=== PATIENT | female | born 1960 | race American Indian/Alaskan Native ===

== ENCOUNTER 2016-12-23 21:56 | Emergency (ER) | payer SELFPAY ==
--- NOTE | 2016-12-23 22:33 | Emergency Department Report ---
Chief Complaint: Neuro Symptoms/Deficit Stated Complaint: NUMBNESS/TINGLING HANDS/LEGS Time Seen by Provider: 12/23/16 22:20 - HPI History of Present Illness: History 6-year-old female complaining of numbness and tingling in both upper and lower extremities since yesterday. Denies history of similar symptoms. Positive for fever, Tmax= 100.5. Denies chest pain, shortness of breath, abdominal pain. Positive for history of anemia. Positive for history of hypertension and states that she currently takes metoprolol and Norvasc with her last dose being this morning. Patient has not taken her second dose of metoprolol today. - ROS Review of Systems: Per HPI - Exam Vital Signs: Vital Signs 12/23/16 22:03 Temperature 98.3 F Pulse Rate 102 H Respiratory 20 Rate Blood Pressure 160/109 O2 Sat by Pulse 100 Oximetry Physical Exam: General: 56-year-old female in no acute distress. Well-developed, well- nourished. CV: Regular rate and rhythm. No murmurs rubs or gallops. Lungs: Clear to auscultation bilaterally. MSE screening note: Focused history and physical exam performed. Due to findings the following was ordered: ED Disposition for MSE Condition: Stable
[2016-12-23 23:24] LABS: Basophils % (Auto) 0.8 % (0.0-1.8); Eosinophils % (Auto) 0.6 % (0.0-4.3); Hematocrit 32.5 % (30.3-42.9); Hemoglobin 10.2 gm/dl (10.1-14.3); Mean Corpuscular HGB Conc 31 % (30-34); Mean Corpuscular Volume 73 fl (79-97); Platelet Count 391 K/mm3 (140-440); Red Blood Count 4.45 M/mm3 (3.65-5.03); White Blood Count 6.2 K/mm3 (4.5-11.0)
[2016-12-23 23:27] LABS: Anion Gap 23 mmol/L; Blood Urea Nitrogen 12 mg/dL (7-17); Calcium 8.5 mg/dL (8.4-10.2); Carbon Dioxide 25 mmol/L (22-30); Chloride 91.9 mmol/L (98-107); Glucose 103 mg/dL (65-100); Potassium 3.8 mmol/L (3.6-5.0); Sodium 136 mmol/L (137-145)
[2016-12-23 23:29] LABS: Mean Corpuscular Hemoglobin 23 pg (28-32); Red Cell Distribution Width 21.4 % (13.2-15.2)
[2016-12-24] MEDS ORDERED: LOPRESSOR PO ONE (09:13)
[2016-12-24] MEDS ORDERED: NORVASC PO ONE (09:13)
[2016-12-24] MEDS ORDERED: NEURONTIN PO ONE (09:33)
[2016-12-24] MEDS ORDERED: MAGNESIUM SULFATE 2GM/50ML 2 GM/50 ML BAG IV ONE (10:25)
--- NOTE | 2016-12-24 10:29 | Emergency Department Report ---
ED Neuro Deficit HPI - General Chief Complaint: Neuro Symptoms/Deficit Stated Complaint: NUMBNESS/TINGLING HANDS/LEGS Time Seen by Provider: 12/23/16 22:20 Source: patient Mode of arrival: Ambulatory Limitations: No Limitations - History of Present Illness Initial Comments: 56-year-old female with a past medical history of diabetes or hypertension since the hospital complains of burning, numbness, and tingling to bilateral hands and feet. Symptoms constant since yesterday. Patient denies any previous history of the same or any recent injury. No complaints of neck pain or back pain. MAXIMUM TEMPERATURE 100.5 yesterday. Patient states she has been off her diabetes medications (oral pills and insulin) for greater than 10 years because her sugars have been normal. She states she has had intermittent nausea vomiting times one month without specific abdominal pain. Currently patient takes Norvasc, metoprolol, and Cymbalta did not have any of her medications today. Patient's previous visits have been related to psychiatric issues such as suicidal ideation and overdose attempt. - Related Data Home Medications: Home Medications Medication Instructions Recorded Confirmed Last Taken Cymbalta 60 mg PO 12/24/16 Unknown Metoprolol 100 mg BID 12/24/16 12/24/16 Unknown Norvasc 10 mg PO QDAY 12/24/16 12/24/16 Unknown Potassium Chlorate 20 meq PO QDAY 12/24/16 12/24/16 Unknown Previous Rx's Medication Instructions Recorded Last Taken Type Gabapentin [Neurontin] 100 mg PO Q8HR #90 capsule 12/24/16 Unknown Rx Allergies/Adverse Reactions: Allergies Allergy/AdvReac Type Severity Reaction Status Date / Time lisinopril Allergy Shortness Verified 12/23/16 22:10 of Breath morphine Allergy Rash Verified 12/23/16 22:10 codeine AdvReac Unknown Verified 12/23/16 22:10 ED Review of Systems ROS: Stated complaint: NUMBNESS/TINGLING HANDS/LEGS Other details as noted in HPI Comment: All other systems reviewed and negative Other: Constitutional: No fevers chills Eyes: No eye pain visual changes ENT: No ear pain or throat pain Neck: Denies pain Respiratory: Denies cough wheezing shortness of breath Cardiovascular: Denies chest pain, palpitations, syncope GI: Denies abdominal pain, nausea, vomiting, diarrhea : Denies dysuria Musculoskeletal: Denies back pain Skin: Denies rash, lesions, erythema Neurologic: Denies headache Psychiatric: Denies suicidal ideation, hallucinations ED Past Medical Hx - Past Medical History Hx Hypertension: Yes Hx Diabetes: Yes Hx Psychiatric Treatment: Yes (depression) - Social History Smoking Status: Never Smoker Substance Use Type: None - Medications Home Medications: Home Medications Medication Instructions Recorded Confirmed Last Taken Type Cymbalta 60 mg PO 12/24/16 Unknown History Gabapentin [Neurontin] 100 mg PO Q8HR #90 capsule 12/24/16 Unknown Rx Metoprolol 100 mg BID 12/24/16 12/24/16 Unknown History Norvasc 10 mg PO QDAY 12/24/16 12/24/16 Unknown History Potassium Chlorate 20 meq PO QDAY 12/24/16 12/24/16 Unknown History ED Neuro Physical Exam - General Limitations: No Limitations Suspected Stroke: No - NIHSS Assessment Interval: Baseline 1a. Level of Consciousness: alert 1b. LOC Questions: answers correctly 1c. LOC Commands: performs tasks correctly 2. Best Gaze: normal 3. Visual: no visual loss 4. Facial Palsy: normal symmetrical movement 5b. Motor Arm Right: no drift 5a. Motor Arm Left: no drift 6a. Motor Leg Left: no drift 6b. Motor Leg Right: no drift 7. Limb Ataxia: absent 8. Sensory: mild/moderate sensory loss 9. Best Language: no aphasia 10. Dysarthria: normal 11. Extinction/Inattention: no abnormality Total Score: 1 Stroke Severity: Minor Stroke - Other Other exam information: General: No limitations, patient is alert in no acute distress Head exam: Atraumatic, normocephalic Eyes exam: Normal appearance, pupils equal reactive to light, extraocular movements intact ENT: Moist mucous membrane, normal oropharynx Neck exam: Normal inspection, full range of motion, no meningismus nontender Respiratory exam: Clear to auscultation bilateral, no wheezes, rales, crackles Cardiovascular: Normal rate and rhythm, normal heart sounds Abdomen: Soft, nondistended, and nontender, with normal bowel sounds, no rebound, or guarding Extremity: Full range of motion normal inspection no deformity Back: Normal Inspection, full range of motion, no tenderness Neurologic: Alert, oriented x3, cranial nerves intact, 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 GC sensation to pinprick distal bilateral upper and lower extremities. Psychiatric: normal affect, normal mood Skin: Warm, dry, intact ED Course Vital Signs 12/23/16 12/24/16 12/24/16 22:03 06:14 08:15 Temperature 98.3 F 98.1 F 98.2 F Pulse Rate 102 H 98 H 95 H Respiratory 20 14 16 Rate Blood Pressure 160/109 157/96 Blood Pressure 171/90 [Right] O2 Sat by Pulse 100 100 100 Oximetry 12/24/16 12/24/16 10:10 10:51 Temperature Pulse Rate 91 H 87 Respiratory 16 Rate Blood Pressure 180/99 Blood Pressure 159/94 [Right] O2 Sat by Pulse 100 Oximetry - Reevaluation(s) Reevaluation #1: 12/24/16 10:29 Patient provided her a.m. dose of BP meds and Neurontin. Magnesium is low and IV dose has been supplemented - Lab Data Result diagrams: 12/23/16 22:58 12/23/16 22:58 Lab Results 12/23/16 12/23/16 12/24/16 Range/Units 22:58 22:58 09:07 WBC 6.2 (4.5-11.0) K/mm3 RBC 4.45 (3.65-5.03) M/mm3 Hgb 10.2 (10.1-14.3) gm/dl Hct 32.5 (30.3-42.9) % MCV 73 L (79-97) fl MCH 23 L (28-32) pg MCHC 31 (30-34) % RDW 21.4 H (13.2-15.2) % Plt Count 391 (140-440) K/mm3 Lymph % (Auto) 34.4 (13.4-35.0) % [place] % (Auto) 3.3 (0.0-7.3) % Eos % (Auto) 0.6 (0.0-4.3) % Baso % (Auto) 0.8 (0.0-1.8) % Lymph # 2.1 (1.2-5.4) K/mm3 [place] # 0.2 (0.0-0.8) K/mm3 Eos # 0.0 (0.0-0.4) K/mm3 Baso # 0.1 (0.0-0.1) K/mm3 Seg Neutrophils % 60.9 (40.0-70.0) % Seg Neutrophils # 3.8 (1.8-7.7) K/mm3 Sodium 136 L (137-145) mmol/L Potassium 3.8 (3.6-5.0) mmol/L Chloride 91.9 L (98-107) mmol/L Carbon Dioxide 25 (22-30) mmol/L Anion Gap 23 mmol/L BUN 12 (7-17) mg/dL Creatinine 0.8 (0.7-1.2) mg/dL Estimated GFR > 60 ml/min BUN/Creatinine Ratio 15.00 % Glucose 103 H (65-100) mg/dL Calcium 8.5 (8.4-10.2) mg/dL Magnesium 1.5 L (1.7-2.3) mg/dL - Medical Decision Making Clinically patient's symptoms sound like neuropathy. She will be started on Neurontin 100 mg 3 times a day. Magnesium was supplemented in the ED. Patient be encouraged to follow-up with her primary care doctor for further workup and evaluation - Differential Diagnosis neuropathy, electrolyte abnormality, spinal cord pathology Critical Care Time: No Critical care attestation.: If time is entered above; I have spent that time in minutes in the direct care of this critically ill patient, excluding procedure time. ED Disposition Clinical Impression: Paresthesia, Hypertension, Hypomagnesemia Disposition: DISCHARGED TO HOME OR SELFCARE Is pt being admited?: No Does the pt Need Aspirin: No Condition: Stable Instructions: Hypertension (ED), Paresthesia (ED), Hypomagnesemia (ED) Additional Instructions: Take the medication as prescribed to help with your neuropathic pain. Follow- up with primary care doctor or clinic provided. Prescriptions: Gabapentin [Neurontin] 100 mg PO Q8HR #90 capsule Referrals: [facility] [Provider Group] - 3-5 Days EMERY RENTERIA MD [Staff Physician] - 3-5 Days Time of Disposition: 11:31
[2016-12-24 11:53] VITALS: BP 143/88
== END 2016-12-24 11:53 | disposition home or self-care (01) ==
LOC: ED 21:56
DX: E83.42 Hypomagnesemia (principal); R20.9 Unspecified disturbances of skin sensation; I10 Essential (primary) hypertension; E11.9 Type 2 diabetes mellitus without complications; F32.9 Major depressive disorder, single episode, unspecified
CPT/HCPCS: 36415; 80048; 83735; 85025; 96365; 99283; J3475

== ENCOUNTER 2020-09-18 22:14 | Observation (INO) | payer OTHER ==
[2020-09-18] MEDS ORDERED: ASPIRIN 325 MG TAB PO ONE (22:43)
[2020-09-18 23:13] LABS: Basophils % (Auto) 0.5 % (0.0-1.8); Eosinophils # (Auto) 0.1 K/mm3 (0.0-0.4); Eosinophils % (Auto) 1.5 % (0.0-4.3); Hematocrit 34.4 % (30.3-42.9); Hemoglobin 11.1 gm/dl (10.1-14.3); Lymphocytes # (Auto) 1.3 K/mm3 (1.2-5.4); Lymphocytes % (Auto) 31.1 % (13.4-35.0); Mean Corpuscular HGB Conc 32 % (30-34); Mean Corpuscular Volume 82 fl (79-97); Monocytes # (Auto) 0.2 K/mm3 (0.0-0.8); Monocytes % (Auto) 5.5 % (0.0-7.3); Platelet Count 259 K/mm3 (140-440); Red Blood Count 4.18 M/mm3 (3.65-5.03); Red Cell Distribution Width 15.9 % (13.2-15.2)
--- NOTE | 2020-09-18 23:19 | XRay Report ---
CHEST 1 VIEW 11:06 PM INDICATION / CLINICAL INFORMATION: Chest pain with difficulty breathing for 2 days. COMPARISON: 08/03/14. FINDINGS: SUPPORT DEVICES: None. HEART / MEDIASTINUM: The heart size and pulmonary vasculature are normal. LUNGS / PLEURA: There is a small calcified granuloma in the right lung base. The lungs are otherwise clear. No pleural effusion. No pneumothorax. ADDITIONAL FINDINGS: Moderate hiatal hernia in the retrocardiac region contains an air-fluid level. IMPRESSION: 1. No acute pulmonary disease. 2. Moderate hiatal hernia appears larger or is better seen than on the 2014 study. Signer Name: Jerson Go MD Signed: 09/18/2020 11:14 PM Workstation Name: [id number]
[2020-09-18 23:26] LABS: BUN/Creatinine Ratio 21; Blood Urea Nitrogen 17 mg/dL (7-17); Calcium 8.9 mg/dL (8.4-10.2); Hemolysis Index 2
--- NOTE | 2020-09-19 09:09 | Emergency Department Report ---
ED Chest Pain HPI - General Chief Complaint: Chest Pain Stated Complaint: CHEST PAIN Time Seen by Provider: 09/19/20 09:00 Source: patient Mode of arrival: Ambulatory Limitations: No Limitations - History of Present Illness Initial Comments: 59-year-old female with intermittent brief episodes of substernal sharp pain and longer episodes of left arm dull ache. She states the episode of left arm pain was of at least 45 minutes duration last night. She had a normal stress test 5 or 6 years ago. She states that she was previously on insulin but never on oral agents for diabetes. Now she is not taking anything. Apparently, she does have a history of a calcium channel christin overdose in the past. She is cooperative and not apparently suffering from psychiatric symptoms at the time of my encounter. She states that both her brother and father had myocardial infarctions. She has a history of hypertension. MD Complaint: chest pain -: Gradual Onset: during rest Pain Location: left chest Pain Radiation: LUE Severity: moderate Severity scale (0 -10): 6 Quality: sharp, dull (As above described) Consistency: intermittent Improves With: nothing Worsens With: nothing re: dyspnea Other Symptoms: denies: cough, fever, syncope Treatments Prior to Arrival: none Aspirin use within the Past 7 Days: (0) No - Related Data Home Medications Medication Instructions Recorded Confirmed Last Taken Cymbalta 60 mg PO 12/24/16 Unknown Metoprolol 100 mg BID 12/24/16 12/24/16 Unknown Norvasc 10 mg PO QDAY 12/24/16 12/24/16 Unknown Potassium Chlorate 20 meq PO QDAY 12/24/16 12/24/16 Unknown Previous Rx's Medication Instructions Recorded Last Taken Type Gabapentin [Neurontin] 100 mg PO Q8HR #90 capsule 12/24/16 Unknown Rx Allergies Allergy/AdvReac Type Severity Reaction Status Date / Time lisinopril Allergy Shortness Verified 09/19/20 09:02 of Breath morphine Allergy Rash Verified 09/19/20 09:02 codeine AdvReac Unknown Verified 09/19/20 09:02 Heart Score - HEART Score History: Moderately suspicious EKG: Non-specific Age: 45-65 Risk factors: > 3 risk factors or hx of atherosclerotic disease Troponin: < normal limit HEART Score: 5 - Critical Actions Critical Actions: 4-6 pts:12-16.6% risk of adverse cardiac event. Should be admitted ED Review of Systems ROS: Stated complaint: CHEST PAIN Other details as noted in HPI Constitutional: denies: chills, fever Eyes: denies: eye pain, eye discharge, vision change ENT: denies: ear pain, throat pain Respiratory: denies: cough, shortness of breath, wheezing Cardiovascular: as per HPI, chest pain. denies: palpitations Endocrine: no symptoms reported Gastrointestinal: other (Intermittent rectal bleeding for 3 weeks). denies: abdominal pain, nausea, diarrhea Genitourinary: denies: urgency, dysuria, discharge Musculoskeletal: denies: back pain, joint swelling, arthralgia Skin: denies: rash, lesions Neurological: denies: headache, weakness, paresthesias Psychiatric: denies: anxiety, depression Hematological/Lymphatic: denies: easy bleeding, easy bruising ED Past Medical Hx - Past Medical History Previous Medical History?: Yes Hx Hypertension: Yes Hx Diabetes: Yes Hx Psychiatric Treatment: Yes (depression) Hx Asthma: Yes - Surgical History Past Surgical History?: Yes Additional Surgical History: Gastric Bypass - Social History Smoking Status: Never Smoker Substance Use Type: None - Medications Home Medications: Home Medications Medication Instructions Recorded Confirmed Last Taken Type Cymbalta 60 mg PO 12/24/16 Unknown History Gabapentin [Neurontin] 100 mg PO Q8HR #90 capsule 12/24/16 Unknown Rx Metoprolol 100 mg BID 12/24/16 12/24/16 Unknown History Norvasc 10 mg PO QDAY 12/24/16 12/24/16 Unknown History Potassium Chlorate 20 meq PO QDAY 12/24/16 12/24/16 Unknown History ED Physical Exam - General Limitations: Physical Limitation General appearance: alert, in no apparent distress, obese - Head Head exam: Present: atraumatic, normocephalic - Eye Eye exam: Present: normal appearance. Absent: scleral icterus - ENT ENT exam: Present: mucous membranes moist - Neck Neck exam: Present: normal inspection - Respiratory Respiratory exam: Present: normal lung sounds bilaterally. Absent: respiratory distress - Cardiovascular Cardiovascular Exam: Present: regular rate, normal rhythm. Absent: systolic murmur, diastolic murmur, rubs, gallop - GI/Abdominal GI/Abdominal exam: Present: soft, normal bowel sounds. Absent: distended, tenderness, guarding, rebound - Extremities Exam Extremities exam: Present: normal inspection. Absent: calf tenderness - Back Exam Back exam: Present: normal inspection - Neurological Exam Neurological exam: Present: alert, oriented X3, CN II-XII intact. Absent: motor sensory deficit - Psychiatric Psychiatric exam: Present: normal affect, normal mood - Skin Skin exam: Present: warm, dry, intact, normal color. Absent: rash ED Course Vital Signs 09/18/20 09/19/20 22:37 07:39 Temperature 98.1 F 98.8 F Pulse Rate 97 H 89 Respiratory 18 18 Rate Blood Pressure 175/92 Blood Pressure 196/99 [Right] O2 Sat by Pulse 98 99 Oximetry - Reevaluation(s) Reevaluation #1: Discussed with hospitalist and admitted 09/19/20 09:18 ED Medical Decision Making - Lab Data Result diagrams: 09/18/20 22:52 09/18/20 22:52 Laboratory Results - last 24 hr 09/18/20 09/18/20 09/19/20 22:52 22:52 01:42 WBC 4.2 L RBC 4.18 Hgb 11.1 Hct 34.4 MCV 82 MCH 27 L MCHC 32 RDW 15.9 H Plt Count 259 Lymph % (Auto) 31.1 [place] % (Auto) 5.5 Eos % (Auto) 1.5 Baso % (Auto) 0.5 Lymph # (Auto) 1.3 [place] # (Auto) 0.2 Eos # (Auto) 0.1 Baso # (Auto) 0.0 Seg Neutrophils % 61.4 Seg Neutrophils # 2.6 Sodium 136 L Potassium 3.7 Chloride 99.3 Carbon Dioxide 22 Anion Gap 18 BUN 17 Creatinine 0.8 Estimated GFR > 60 BUN/Creatinine Ratio 21 Glucose 298 H Calcium 8.9 Troponin T < 0.010 < 0.010 09/19/20 04:58 WBC RBC Hgb Hct MCV MCH MCHC RDW Plt Count Lymph % (Auto) [place] % (Auto) Eos % (Auto) Baso % (Auto) Lymph # (Auto) [place] # (Auto) Eos # (Auto) Baso # (Auto) Seg Neutrophils % Seg Neutrophils # Sodium Potassium Chloride Carbon Dioxide Anion Gap BUN Creatinine Estimated GFR BUN/Creatinine Ratio Glucose Calcium Troponin T < 0.010 - EKG Data -: EKG Interpreted by [place] EKG shows normal: sinus rhythm, intervals, QRS complexes, ST-T waves Rate: normal - EKG Data Interpretation: other (Left axis deviation, ? left atrial abnormality) - Radiology Data Radiology results: report reviewed (Moderate hiatal hernia, no acute process) Critical care attestation.: If time is entered above; I have spent that time in minutes in the direct care of this critically ill patient, excluding procedure time. ED Disposition Clinical Impression: Rectal bleeding Chest pain Qualifiers: Chest pain type: unspecified Qualified Code(s): R07.9 - Chest pain, unspecified Hyperglycemia due to type 2 diabetes mellitus Qualifiers: Diabetes mellitus [facility] insulin use: without exterminator termite use Qualified Code(s): E11.65 - Type 2 diabetes mellitus with hyperglycemia Disposition: OP ADMIT IP TO THIS HOSP Is pt being admited?: Yes Does the pt Need Aspirin: Yes Condition: Stable Instructions: Chest Pain (ED), Diabetes Mellitus Type 2 in Adults (ED) Referrals: TAHMINA MCCANN MD [Primary Care Provider] - 3-5 Days Time of Disposition: 09:18
[2020-09-19] MEDS ORDERED: NITROGLYCERIN 2% OINT 1 GM TP ONE (09:19)
[2020-09-19] MEDS: INSULIN LISPRO 100 UNIT/ML VIAL 3 mL SUB-Q SCH ×3 (11:00→21:52)
--- NOTE | 2020-09-19 11:00 | History and Physical Report ---
History of Present Illness Date of examination: 09/19/20 Date of admission: 09/19/20 10:30 Chief complaint: Chest pain History of present illness: Very pleasant 59-year-old -[place] female patient with significant past medical history of hypertension, diet-controlled diabetes, stroke depression Presented to the emergency room with intermittent left-sided chest pain sometimes radiating to the left arm intermittent since last night Patient had similar symptoms in the past and had a negative stress test 5 to 6 years ago, patient grades her chest pain between 4-5/10 Not associated with nausea vomiting or diaphoresis. Patient gives history of gastric bypass surgery many years ago stable Initial work-up in the emergency room with 3 sets of cardiac enzymes was negative, EKG no acute ST-T changes noted Chest x-ray no acute abnormality moderate hiatal hernia Past History Past Medical History: diabetes, hypertension, hyperlipidemia Past Surgical History: Other (Gastric bypass surgery) Social history: denies: smoking, alcohol abuse, prescription drug abuse Family history: CAD Medications and Allergies Allergies Allergy/AdvReac Type Severity Reaction Status Date / Time lisinopril Allergy Shortness Verified 09/19/20 09:02 of Breath morphine Allergy Rash Verified 09/19/20 09:02 codeine AdvReac Unknown Verified 09/19/20 09:02 Home Medications Medication Instructions Recorded Confirmed Last Taken Type Metoprolol 100 mg PO BID 12/24/16 09/19/20 Unknown History Norvasc 10 mg PO QDAY 12/24/16 09/19/20 Unknown History Potassium Chlorate 20 meq PO QDAY 12/24/16 09/19/20 Unknown History DULoxetine [Cymbalta] 60 mg PO QDAY 09/19/20 09/19/20 Unknown History Magnesium 25 mg PO DAILY 09/19/20 09/19/20 Unknown History Review of Systems Constitutional: no weight loss, no weight gain, no fever, no chills Ears, nose, mouth and throat: no nasal congestion, no nasal discharge Cardiovascular: chest pain, no orthopnea, no palpitations, no lightheadedness Respiratory: no cough, no shortness of breath Gastrointestinal: no abdominal pain, no nausea, no vomiting Genitourinary Female: no flank pain, no dysuria Musculoskeletal: no myalgias, no arthritis Integumentary: no rash, no lesions Neurological: no head injury, no parathesias, no syncope Psychiatric: depression (History of), no anxiety Endocrine: no cold intolerance, no heat intolerance Hematologic/Lymphatic: no easy bruising, no easy bleeding Allergic/Immunologic: no urticaria, no allergic rhinitis Exam - Constitutional Vitals: Temp Pulse Resp BP Pulse Ox 98.8 F 81 18 164/89 100 09/19/20 07:39 09/19/20 09:26 09/19/20 09:02 09/19/20 09:26 09/19/20 09:02 General appearance: Present: no acute distress, well-nourished - EENT Eyes: Present: PERRL, EOM intact - Neck Neck: Present: supple, normal ROM - Respiratory Respiratory effort: normal Respiratory: bilateral: diminished, negative: rales, rhonchi, wheezing - Extremities Extremities: no ischemia, pulses intact - Abdominal General gastrointestinal: Present: soft, non-tender, non-distended, normal bowel sounds - Integumentary Integumentary: Present: clear, warm - Musculoskeletal Musculoskeletal: strength equal bilaterally - Psychiatric Psychiatric: appropriate mood/affect, cooperative - Neurologic Neurologic: CNII-XII intact, moves all extremities HEART Score - HEART Score EKG: Non-specific Age: 45-65 Risk factors: > 3 risk factors or hx of atherosclerotic disease Troponin: Troponin T < 0.010 ng/mL (0.00-0.029) 09/19/20 04:58 Troponin: < normal limit - Critical Actions Critical Actions: 4-6 pts:12-16.6% risk of adverse cardiac event. Should be admitted Results - Labs CBC & Chem 7: 09/18/20 22:52 09/20/20 06:56 Labs: Abnormal lab results 09/18/20 09/18/20 Range/Units 22:52 22:52 WBC 4.2 L (4.5-11.0) K/mm3 MCH 27 L (28-32) pg RDW 15.9 H (13.2-15.2) % Sodium 136 L (137-145) mmol/L Glucose 298 H (65-100) mg/dL Assessment and Plan --Chest pain; evaluate for acute coronary syndrome Aspirin, beta-blockers, nitrates, statins, patient allergic to lisinopril Serial cardiac enzymesx3 negative, However patient has risk factors and intermittent chest pain Would benefit by evaluation by cardiology Echocardiogram, possible stress test if needed Cardiology consult --GERD; probably the cause of atypical chest We will continue Protonix --Hypertension; uncontrolled Resume multiple home antihypertensives As needed medications, closely monitor --Hyperglycemia; type 2 diabetes mellitus Accu-Chek sliding scale coverage ADA diet Long-acting insulin as needed --Obesity; BMI 33.2 Advised weight reduction when medically stable --DVT prophylaxis; Lovenox We will closely monitor the patient and adjust the management as needed. Plan of care reviewed with the patient and her nurse
[2020-09-19] MEDS ORDERED: ASPIRIN 325 MG TAB ONE (11:01)
[2020-09-19] MEDS ORDERED: NITROGLYCERIN 0.4 MG TAB SUBL SL PRN (11:08)
[2020-09-19] MEDS ORDERED: FLU VACC QUAD 2020-2021 (6 months +)/PF 60 0.5 ML SYRINGE IM ONE (13:51)
[2020-09-19] MEDS: KETOROLAC 30 MG/1 ML INJ IV SCH ×2 (14:02→17:53)
[2020-09-19] MEDS: ACETAMINOPHEN 325 MG TAB PO PRN (16:38)
[2020-09-19] MEDS: FAMOTIDINE 20 MG TAB PO SCH (21:51)
[2020-09-19] MEDS: METOPROLOL TARTRATE 100 MG TAB PO SCH (21:52)
[2020-09-19] MEDS: ENOXAPARIN 40 MG/0.4 ML INJ SUB-Q SCH (21:52)
[2020-09-20] MEDS: KETOROLAC 30 MG/1 ML INJ IV SCH ×4 (00:14→17:49)
[2020-09-20 08:27] LABS: BUN/Creatinine Ratio 21; Blood Urea Nitrogen 17 mg/dL (7-17); Calcium 8.9 mg/dL (8.4-10.2); Chol/HDL Ratio 4.16 %; HDL Cholesterol 31 mg/dL (40-59); Hemolysis Index 1; LDL Cholesterol,Direct 80 mg/dL (50-130)
[2020-09-20] MEDS: INSULIN LISPRO 100 UNIT/ML VIAL 3 mL SUB-Q SCH ×4 (08:30→21:48)
[2020-09-20] MEDS: amLODIPine 10 MG TAB PO SCH (09:01)
[2020-09-20] MEDS: DULoxetine 30 MG CAP PO SCH (09:01)
[2020-09-20] MEDS: FAMOTIDINE 20 MG TAB PO SCH ×2 (09:01→21:40)
[2020-09-20] MEDS: METOPROLOL TARTRATE 100 MG TAB PO SCH ×2 (09:01→21:40)
[2020-09-20] MEDS: ASPIRIN 325 MG TAB PO SCH (09:01)
[2020-09-20] MEDS ORDERED: INSULIN NPH/REGULAR 70/30 INJ SUB-Q ONE (09:04)
--- NOTE | 2020-09-20 09:10 | Progress Note ---
Assessment and Plan Assessment and plan: --Atypical chest pain; evaluate for acute coronary syndrome Aspirin, beta-blockers, nitrates, statins Serial cardiac enzymes x3 negative However patient has multiple risk factors and recurrent chest pain Benefit by cardiology evaluation and possible stress test[inpt vs op] Echo; LVEF 55 to 60% Cardiology evaluation noted and appreciated Stress test tomorrow --GERD; Protonix --Hypertension; uncontrolled Resume multiple home antihypertensives As needed medications, closely monitor --Hyperglycemia; type 2 diabetes mellitus Accu-Chek sliding scale coverage ADA diet Long-acting insulin as needed A1c 9.4 Diabetic education, diabetic diet education 70/30 Novolin 8 units twice a day, --Obesity; BMI 33.2 Advised weight reduction when medically stable --Patient gives history of rectal bleeding; No active bleeding now, H&H is stable 11.1/34.4 Advised GI evaluation as outpatient upon discharge Protonix, avoid NSAID group of medications --DVT prophylaxis; Lovenox Will monitor closely and adjust the management as needed Plan of care reviewed with the patient and her nurse Follow stress test tomorrow, if negative and patient stable may be discharged home History Interval history: I have seen and examined the patient at the bedside this morning Patient's chart and medications reviewed Patient complains of mild intermittent chest pain Cardiology evaluated Possible stress test tomorrow Vital signs noted Hospitalist Physical - Constitutional Vitals: Temp Pulse Resp BP Pulse Ox 98.5 F 65 18 151/70 97 09/20/20 07:48 09/20/20 09:01 09/20/20 07:48 09/20/20 09:01 09/20/20 07:48 General appearance: Present: no acute distress, well-nourished - EENT Eyes: Present: PERRL, EOM intact - Neck Neck: Present: supple, normal ROM - Respiratory Respiratory effort: normal Respiratory: bilateral: diminished, negative: rales, rhonchi, wheezing - Cardiovascular Rhythm: regular Heart Sounds: Present: S1 & S2 - Extremities Extremities: no ischemia, No edema - Abdominal General gastrointestinal: soft, non-tender, non-distended, normal bowel sounds - Integumentary Integumentary: Present: clear, warm - Psychiatric Psychiatric: appropriate mood/affect, cooperative - Neurologic Neurologic: CNII-XII intact, moves all extremities HEART Score - HEART Score EKG: Non-specific Age: 45-65 Risk factors: > 3 risk factors or hx of atherosclerotic disease Troponin: Troponin T < 0.010 ng/mL (0.00-0.029) 09/20/20 06:56 Troponin: < normal limit - Critical Actions Critical Actions: 4-6 pts:12-16.6% risk of adverse cardiac event. Should be admitted Results - Labs CBC & Chem 7: 09/18/20 22:52 12 06:56 Labs: Laboratory Last Values WBC 4.2 K/mm3 (4.5-11.0) L 09/18/20 22:52 RBC 4.18 M/mm3 (3.65-5.03) 09/18/20 22:52 Hgb 11.1 gm/dl (10.1-14.3) 09/18/20 22:52 Hct 34.4 % (30.3-42.9) 09/18/20 22:52 MCV 82 fl (79-97) 09/18/20 22:52 MCH 27 pg (28-32) L 09/18/20 22:52 MCHC 32 % (30-34) 09/18/20 22:52 RDW 15.9 % (13.2-15.2) H 09/18/20 22:52 Plt Count 259 K/mm3 (140-440) 09/18/20 22:52 Lymph % (Auto) 31.1 % (13.4-35.0) 09/18/20 22:52 [place] % (Auto) 5.5 % (0.0-7.3) 09/18/20 22:52 Eos % (Auto) 1.5 % (0.0-4.3) 09/18/20 22:52 Baso % (Auto) 0.5 % (0.0-1.8) 09/18/20 22:52 Lymph # (Auto) 1.3 K/mm3 (1.2-5.4) 09/18/20 22:52 [place] # (Auto) 0.2 K/mm3 (0.0-0.8) 09/18/20 22:52 Eos # (Auto) 0.1 K/mm3 (0.0-0.4) 09/18/20 22:52 Baso # (Auto) 0.0 K/mm3 (0.0-0.1) 09/18/20 22:52 Seg Neutrophils % 61.4 % (40.0-70.0) 09/18/20 22:52 Seg Neutrophils # 2.6 K/mm3 (1.8-7.7) 09/18/20 22:52 Sodium 139 mmol/L (137-145) 09/20/20 06:56 Potassium 3.9 mmol/L (3.6-5.0) 09/20/20 06:56 Chloride 103.7 mmol/L (98-107) 09/20/20 06:56 Carbon Dioxide 27 mmol/L (22-30) 09/20/20 06:56 Anion Gap 12 mmol/L 09/20/20 06:56 BUN 17 mg/dL (7-17) 09/20/20 06:56 Creatinine 0.8 mg/dL (0.6-1.2) 09/20/20 06:56 Estimated GFR > 60 ml/min 09/20/20 06:56 BUN/Creatinine Ratio 21 % 09/20/20 06:56 Glucose 223 mg/dL (65-100) H 09/20/20 06:56 POC Glucose 190 mg/dL (70-105) H 09/20/20 07:43 Hemoglobin A1c 9.4 % (4-6) H 09/20/20 06:56 Calcium 8.9 mg/dL (8.4-10.2) 09/20/20 06:56 Total Creatine Kinase 160 units/L (30-135) H 09/20/20 06:56 Troponin T < 0.010 ng/mL (0.00-0.029) 09/20/20 06:56 Triglycerides 130 mg/dL (2-149) 09/20/20 06:56 Cholesterol 129 mg/dL (50-199) 09/20/20 06:56 LDL Cholesterol Direct 80 mg/dL (50-130) 09/20/20 06:56 HDL Cholesterol 31 mg/dL (40-59) L 09/20/20 06:56 Cholesterol/HDL Ratio 4.16 % 09/20/20 06:56 [place]imes/IV: Voiding Method Toilet IV Catheter Type [Right INT / Saline Lock Antecubital] Active Medications - Current Medications Current Medications: Generic Name Dose Route Start Last Admin Trade Name Freq PRN Reason Stop Dose Admin Acetaminophen 650 mg 09/19/20 11:08 09/19/20 16:38 Tylenol PO 650 mg Q4H PRN Administration Pain, Mild (1-3) Amlodipine Besylate 10 mg 09/20/20 10:00 09/20/20 09:01 Amlodipine PO 10 mg QDAY LUCILA Administration Aspirin 325 mg 09/20/20 10:00 09/20/20 09:01 Aspirin PO 325 mg QDAY LUCILA Administration Atorvastatin Calcium 20 mg 09/19/20 22:00 09/19/20 21:51 Lipitor PO 20 mg QHS LUCILA Administration Duloxetine HCl 60 mg 09/20/20 10:00 09/20/20 09:01 Cymbalta PO 60 mg QDAY LUCILA Administration Enoxaparin Sodium 40 mg 09/19/20 22:00 09/19/20 21:52 Enoxaparin SUB-Q 40 mg QDAY@2200 LUCILA Administration Protocol Famotidine 20 mg 09/19/20 22:00 09/20/20 09:01 Pepcid PO 20 mg BID LUCILA Administration Insulin Human Lispro 0 unit 09/19/20 11:30 09/20/20 08:30 Humalog SUB-Q 2 unit ACHS LUCILA Administration Protocol Ketorolac Tromethamine 15 mg 09/19/20 12:00 09/20/20 05:51 Toradol IV 09/24/20 11:59 15 mg Q6HR LUCILA Administration Metoprolol Tartrate 100 mg 09/19/20 22:00 09/20/20 09:01 Metoprolol PO 100 mg BID LUCILA Administration Nitroglycerin 0.4 mg 09/19/20 11:08 Nitrostat SL .Q5MIN PRN Chest Pain
--- NOTE | 2020-09-20 15:50 | Consultation ---
History of Present Illness Consult date: 09/20/20 Requesting physician: ANA HURTADO Consult reason: chest pain History of present illness: She presents with a three-week history of recurrent, sharp pericardial chest pain as well as a dull left arm pain. Symptoms are sometimes associated with nausea and shortness of breath. There is no relation to her level of activity. Past History Past Medical History: hypertension, hyperlipidemia Past Surgical History: Other (Gastric bypass surgery) Social history: denies: smoking, alcohol abuse Family history: CAD Medications and Allergies Allergies Allergy/AdvReac Type Severity Reaction Status Date / Time lisinopril Allergy Shortness Verified 09/19/20 09:02 of Breath morphine Allergy Rash Verified 09/19/20 09:02 codeine AdvReac Unknown Verified 09/19/20 09:02 Home Medications Medication Instructions Recorded Confirmed Last Taken Type Metoprolol 100 mg PO BID 12/24/16 09/19/20 Unknown History Norvasc 10 mg PO QDAY 12/24/16 09/19/20 Unknown History Potassium Chlorate 20 meq PO QDAY 12/24/16 09/19/20 Unknown History DULoxetine [Cymbalta] 60 mg PO QDAY 09/19/20 09/19/20 Unknown History Magnesium 25 mg PO DAILY 09/19/20 09/19/20 Unknown History Active Meds: Active Medications Acetaminophen (Tylenol) 650 mg PO Q4H PRN PRN Reason: Pain, Mild (1-3) Last Admin: 09/19/20 16:38 Dose: 650 mg Documented by: Amlodipine Besylate (Amlodipine) 10 mg PO QDAY [facility] Last Admin: 09/20/20 09:01 Dose: 10 mg Documented by: Aspirin (Aspirin) 325 mg PO QDAY [facility] Last Admin: 09/20/20 09:01 Dose: 325 mg Documented by: Atorvastatin Calcium (Lipitor) 20 mg PO QHS [facility] Last Admin: 09/19/20 21:51 Dose: 20 mg Documented by: Duloxetine HCl (Cymbalta) 60 mg PO QDAY [facility] Last Admin: 09/20/20 09:01 Dose: 60 mg Documented by: Enoxaparin Sodium (Enoxaparin) 40 mg SUB-Q QDAY@2200 [facility]; Protocol Last Admin: 09/19/20 21:52 Dose: 40 mg Documented by: Famotidine (Pepcid) 20 mg PO BID [facility] Last Admin: 09/20/20 09:01 Dose: 20 mg Documented by: Insulin Human Isoph/Insulin Regular (Humulin 70/30) 8 unit SUB-Q BIDDIAB [facility] Insulin Human Lispro (Humalog) 0 unit SUB-Q ACHS [facility]; Protocol Last Admin: 09/20/20 11:50 Dose: 3 unit Documented by: Ketorolac Tromethamine (Toradol) 15 mg IV Q6HR [facility] Stop: 09/24/20 11:59 Last Admin: 09/20/20 11:51 Dose: 15 mg Documented by: Metoprolol Tartrate (Metoprolol) 100 mg PO BID [facility] Last Admin: 09/20/20 09:01 Dose: 100 mg Documented by: Nitroglycerin (Nitrostat) 0.4 mg SL .Q5MIN PRN PRN Reason: Chest Pain Review of Systems Constitutional: no fever, no chills Ears, nose, mouth and throat: no ear pain, no ear discharge, no sore throat Cardiovascular: chest pain, shortness of breath, no palpitations, no lighthead edness Respiratory: no cough, no hemoptysis Genitourinary Female: no dysuria, no urinary frequency Rectal: no pain, no bleeding Musculoskeletal: no neck stiffness, no neck pain, no myalgias Integumentary: no rash, no pruritis Neurological: no weakness, no parathesias, no headaches Endocrine: no cold intolerance, no heat intolerance Hematologic/Lymphatic: no easy bruising, no easy bleeding Allergic/Immunologic: no urticaria, no wheezing Physical Examination Vital Signs Last Vital Signs Temp 98.1 F 09/20/20 12:01 Pulse 77 09/20/20 12:01 Resp 16 09/20/20 12:54 BP 150/81 09/20/20 12:01 Pulse Ox 98 09/20/20 12:54 General appearance: no acute distress HEENT: Positive: EOMI, Normocephaly, Mucus Membranes Moist Neck: Positive: neck supple, trachea midline Cardiac: Positive: Reg Rate and Rhythm, S1/S2 Lungs: Positive: clear to auscultation Neuro: Positive: Grossly Intact Abdomen: Positive: Soft, Active Bowel Sounds. Negative: Tender Musculoskeletal: Normal Range of Motion Extremities: Present: normal. Absent: edema Results 09/18/20 22:52 09/20/20 06:56 Lipids 09/20/20 Range/Units 06:56 Triglycerides 130 (2-149) mg/dL Cholesterol 129 (50-199) mg/dL HDL Cholesterol 31 L (40-59) mg/dL Cholesterol/HDL Ratio 4.16 % Comprehensive Metabolic Panel 09/20/20 Range/Units 06:56 Sodium 139 (137-145) mmol/L Potassium 3.9 (3.6-5.0) mmol/L Chloride 103.7 (98-107) mmol/L Carbon Dioxide 27 (22-30) mmol/L BUN 17 (7-17) mg/dL Creatinine 0.8 (0.6-1.2) mg/dL Glucose 223 H (65-100) mg/dL Calcium 8.9 (8.4-10.2) mg/dL - Imaging and Cardiology EKG: image reviewed EKG interpretations - Telemetry EKG Rhythm: Sinus Rhythm - EKG Sinus rhythms and dysrhythmias: sinus rhythm Repolarization changes or abnormalities: repolarization abn secondary to ventr icular hypertrophy Assessment and Plan Initiate anti-ischemic regimen. Schedule Lexiscan stress test with nuclear imaging in a.m. - Patient Problems (1) Chest pain Current Visit: Yes Status: Acute (2) Hypertension Current Visit: Yes Status: Chronic Qualifiers: Hypertension type: essential hypertension Qualified Code(s): I10 - Essential (primary) hypertension (3) Diabetes mellitus Current Visit: Yes Status: Acute Qualifiers: Diabetes mellitus type: type 2 (4) H/O gastric bypass Current Visit: Yes Status: Chronic
[2020-09-20] MEDS: INSULIN NPH/REGULAR 70/30 INJ SUB-Q SCH (16:33)
[2020-09-20] MEDS: NITROGLYCERIN 2% OINT 1 GM TP SCH (17:51)
[2020-09-20] MEDS: ACETAMINOPHEN 325 MG TAB PO PRN (21:40)
[2020-09-20] MEDS: ENOXAPARIN 40 MG/0.4 ML INJ SUB-Q SCH (21:40)
[2020-09-21] MEDS: KETOROLAC 30 MG/1 ML INJ IV SCH ×3 (01:05→12:16)
[2020-09-21] MEDS: NITROGLYCERIN 2% OINT 1 GM TP SCH ×2 (05:07→12:00)
[2020-09-21] MEDS: INSULIN LISPRO 100 UNIT/ML VIAL 3 mL SUB-Q SCH ×2 (08:00→12:00)
[2020-09-21] MEDS ORDERED: REGADENOSON 0.4 MG/5 ML INJ IV ONE ×2 (08:22→09:33)
[2020-09-21] MEDS: INSULIN NPH/REGULAR 70/30 INJ SUB-Q SCH (08:48)
--- NOTE | 2020-09-21 10:48 | Progress Note ---
Assessment and Plan tte reviewed - EF 55-60%, LA mildly dilated, mild to mod MR, mild TR. S/p lexiscan MPI stress test today which was negative for ischemic, EF 45%. Currently stable cardiac status. Pt may discharge from cardiology standpoint. Recommend pt follow up in our office with Dr. Brady within 2 weeks ([phone]). The patient has been seen in conjunction with Dr. Luque who agrees with the assessment and plan of care. - Patient Problems (1) Chest pain Current Visit: Yes Status: Resolved (2) Hypertension Current Visit: Yes Status: Chronic Qualifiers: Hypertension type: essential hypertension Qualified Code(s): I10 - Essential (primary) hypertension (3) Diabetes mellitus Current Visit: Yes Status: Acute Qualifiers: Diabetes mellitus type: type 2 (4) H/O gastric bypass Current Visit: Yes Status: Chronic Subjective Date of service: 09/21/20 Principal diagnosis: cp Interval history: pt for stress test. no current cardiac complaints. in SR on tele. Objective Last Vital Signs Temp 98.5 F 09/21/20 08:15 Pulse 64 09/21/20 08:41 Resp 18 09/21/20 08:15 BP 131/57 09/21/20 08:15 Pulse Ox 95 09/21/20 08:15 - Physical Examination General: No Apparent Distress HEENT: Positive: EOMI, Normocephaly, Mucus Membranes Moist Neck: Positive: neck supple, trachea midline Cardiac: Positive: Reg Rate and Rhythm, S1/S2 Lungs: Positive: Decreased Breath Sounds Neuro: Positive: Grossly Intact Abdomen: Positive: Soft, Active Bowel Sounds. Negative: Tender Musculoskeletal: Normal Range of Motion Extremities: Present: normal. Absent: edema - Imaging and Cardiology EKG: image reviewed - Telemetry EKG Rhythm: Sinus Rhythm - EKG Sinus rhythms and dysrhythmias: sinus rhythm Repolarization changes or abnormalities: repolarization abn secondary to ventricular hypertrophy
[2020-09-21] MEDS: DULoxetine 30 MG CAP PO SCH (12:15)
[2020-09-21] MEDS: amLODIPine 10 MG TAB PO SCH (12:15)
[2020-09-21] MEDS: ASPIRIN 325 MG TAB PO SCH (12:15)
[2020-09-21] MEDS: FAMOTIDINE 20 MG TAB PO SCH (12:16)
[2020-09-21] MEDS: METOPROLOL TARTRATE 100 MG TAB PO SCH (12:18)
[2020-09-21 12:42] VITALS: BP 157/75
--- NOTE | 2020-09-21 16:55 | Discharge Summary ---
Providers - Providers Date of Admission: 09/19/20 10:30 Date of discharge: 09/21/20 Attending physician: ANA HURTADO 09/19/20 15:54 Consult to Physician [CONS] Routine Comment: Consulting Provider: REINIER BRADY Physician Instructions: Reason For Exam: Chest pain/multiple risk factors Primary care physician: [facility], Hospitalization Reason for admission: Chest pain/uncontrolled diabetes Condition: Stable Pertinent studies: ECHO: EF 55-60%, LA mildly dilated, mild to mod MR, mild TR. S/p lexiscan MPI stress test negative for ischemic, EF 45%. 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 EF 55 to 60%. Patient's chest pain is probably noncardiac due to GERD managed with Pepcid. Cardiology cleared for discharge and follow-up per schedule Patient also had uncontrolled blood sugars clinic noncompliance, started on Accu-Cheks SS coverage and long-acting insulin, patient received diabetic and nutrition education. Today patient is comfortable no new complaints vital signs stable physical examination unremarkable, stable at discharge. Discharge Diagnosis: --Atypical chest pain; Evaluated by cardiology Stress test negative for reversible ischemia EF :55 to 60%, noncardiac chest pain Probably secondary to GERD. --GERD; Protonix --Hypertension; well controlled with medications --Hyperglycemia; type 2 diabetes mellitus Accu-Chek sliding scale coverage ADA diet Long-acting insulin as needed A1c 9.4 Diabetic education, diabetic diet education 70/30 Novolin 8 units twice a day, --Obesity; BMI 33.2 Advised weight reduction when medically stable --Patient gives history of rectal bleeding; No active bleeding now, H&H is stable 11.1/34.4 Advised GI evaluation as outpatient upon discharge Protonix, avoid NSAID group of medications --DVT prophylaxis; received lovenox. Stable at discharge Disposition: TO HOME OR SELFCARE Time spent for discharge: 32 min Core Measure Documentation - Palliative Care Palliative Care/ Comfort Measures: Not Applicable - Core Measures Any of the following diagnoses?: none Exam - Constitutional Vitals: Temp Pulse Resp BP Pulse Ox 98.5 F 68 20 157/75 98 09/21/20 08:15 09/21/20 14:16 09/21/20 12:16 09/21/20 10:54 09/21/20 13:56 General appearance: Present: no acute distress, well-nourished - EENT Eyes: Present: PERRL, EOM intact - Neck Neck: Present: supple, normal ROM - Respiratory Respiratory effort: normal Respiratory: bilateral: diminished, negative: rales, rhonchi, wheezing - Cardiovascular Rhythm: regular Heart Sounds: Present: S1 & S2 - Extremities Extremities: no ischemia, No edema - Abdominal General gastrointestinal: Present: soft, non-tender, non-distended, normal bowel sounds - Integumentary Integumentary: Present: clear, warm - Musculoskeletal Musculoskeletal: strength equal bilaterally - Psychiatric Psychiatric: appropriate mood/affect, cooperative - Neurologic Neurologic: CNII-XII intact, moves all extremities Plan Activity: advance as tolerated Diet: diabetic Additional Instructions: follow up cardiology office with Dr. Brady within 2 weeks ([phone]). If you have worsening symptoms contact MD or go to emergency room. May return to work on 09/25/2020 Follow up with: SUSAN DANHAMPTON MD CRISTHIAN [Primary Care Provider] - 3-5 Days REINIER BRADY MD [Staff Physician] - 14 Days Forms: Work/School Release Form Prescriptions: amLODIPine 10 mg PO QDAY #30 tablet Aspirin EC [Halfprin EC] 81 mg PO QDAY #30 tablet. Insulin Regular, Human [HumuLIN R] 3 units SC ACHS #1 vial Metoprolol [Lopressor TAB] 100 mg PO BID #60 tablet Insulin NPH/Regular [NovoLIN 70/30] 8 unit SUB-Q BIDDIAB #1 vial Famotidine [Pepcid] 20 mg PO BID #30 tablet Other Discharge Orders: Glucometer (Amb) Location: None Selected Glucometer supplies[Amb] Location: None Selected
== END 2020-09-21 18:10 | disposition home or self-care (01) ==
LOC: ED 22:14 → 4A 09-19 10:30
PROVIDERS: ADMIT Internal Medicine; ATTEND Internal Medicine
DX: R07.89 Other chest pain (principal); E11.65 Type 2 diabetes mellitus with hyperglycemia; K21.9 Gastro-esophageal reflux disease without esophagitis; I10 Essential (primary) hypertension; E66.9 Obesity, unspecified; E78.5 Hyperlipidemia, unspecified; K62.5 Hemorrhage of anus and rectum; Z23 Encounter for immunization; Z98.84 Bariatric surgery status; Z79.84 Long term (current) use of oral hypoglycemic drugs; Z79.899 Other long term (current) drug therapy; Z88.5 Allergy status to narcotic agent; Z88.8 Allergy status to other drugs, medicaments and biological substances; Z68.33 Body mass index [BMI] 33.0-33.9, adult
CPT/HCPCS: 36415; 71045; 78452; 80048; 80061; 82550; 82962; 83036; 84484; 85025; 90471; 90686; 93005; 93017; 93306; 96372; 96374; 96376; 99285; A9270; A9502; G0378; J1650; J1885; J2785; J1815